=== PATIENT | male | born 1970 | race Caucasian/White ===

== ENCOUNTER → 2016-12-12 | Day surgery (SDC) | payer OTHER ==
[~2016-12-12] MED LIST: BUPIVACAINE/EPINEPHRINE 0.25% PF 30 ML VIAL ONE; KETOROLAC TROMETHAMINE 30 MG/ML (IVP) VIAL IV PUSH ONE; LACTATED RINGER'S 1000 ML INJ 1,000 ML ONE; MIDAZOLAM HCL 2 MG/2 ML VIAL ONE; ONDANSETRON HCL 4 MG/2 ML VIAL IV PUSH ONE; PRAV20TA2 PO; PROPOFOL 200 MG/20 ML AMP IV ONE; ceFAZolin INJ 1,000 MG VIAL ONE; oxyCODONE/ACETAMINOPHEN 5 MG/325 MG TAB ONE
--- NOTE | 2016-12-12 10:26 | TN ---
cc: NOEL CHAVEZ M.D. DATE OF SURGERY 12/12/2016 PREOPERATIVE DIAGNOSIS Left knee medial meniscus tear. POSTOPERATIVE DIAGNOSIS 1. Left knee complex medial meniscus tear and degenerative lateral meniscus tear. 2. Synovitis left knee involving the intercondylar notch and the patellofemoral joint space. 3. 10% rupture ACL PROCEDURE PERFORMED 1. Left knee arthroscopy with partial medial and lateral meniscectomies. 2. Limited synovectomy involving the intercondylar notch and the patellofemoral joint space. 3. Left knee arthroscopic debridement of his partial ACL rupture. SURGEON Noel Chavez MD ANESTHESIA General via laryngeal mask augmented by local infiltration BLOOD LOSS Minimal TOURNIQUET TIME 23 minutes at 300 mmHg COUNTS All counts were correct. IMPLANTS No implants were utilized. IMAGING There were no radiologic procedures performed. COMPLICATIONS There were no intraoperative complications. INDICATIONS FOR PROCEDURE Scooter is a 46-year-old gentleman who has been experiencing problems with left knee medial joint line tenderness since early 2016. As a result of his persistent symptoms and limited improvement with conservative care, he was being taken to the operating room for left knee arthroscopy. He had an MRI that revealed the presence of a medial meniscus tear. He was aware of the risks, benefits, potential complications, as well as limitations of the procedure and a full written informed consent was obtained. DESCRIPTION OF THE PROCEDURE After the patient was appropriately identified in the holding area, he correctly marked his left knee for surgery and I had initialed it as well. He was then given one gram of intravenous Ancef in the holding area and then taken to the operating suite where he was placed under general laryngeal mask anesthetic by Dr. Clark. At this time, a well-padded thigh-high tourniquet was a placed on the left leg and then his left leg was prepped with alcohol and Hibiclens and then draped in the normal standard fashion including the use of an impervious stockinette on the foot all the way up to the midcalf level. At this time, a brief time-out was held confirming the left leg was the appropriate surgical site. The team was in agreement and case was now begun. His leg was elevated and exsanguinated with an Kobe wrap. The tourniquet was raised to 300 mmHg. Standard anteromedial and anterolatral joint line portals were established under direct vision. Inflow was initiated and survey of the joint was as follows. A small effusion was evacuated which was primarily clear yellow with slight blood tinge towards the end. Once the knee was decompressed, the inflow was initiated. The scope revealed evidence of moderate hypertrophic synovitis of the patellofemoral joint space especially with the patellar fat pad being somewhat hypertrophic and thickened. This was debrided with an oscillating shaver. The patellofemoral joint showed minimal chondromalacia and the patella did track midline. No loose bodies or any significant chondromalacia was encountered. The medial gutter was now explored. No loose bodies or synovitis was encountered. The medial compartment was now entered. There was a complex tear seen in the posterior third of the medial meniscus with a relatively large unstable white/white tear with some maceration. I was able to debride the unstable tissue with a shaver, as well as hand instruments and then I found a secondary tear more along the anterior portion of the medial meniscus which was debrided with an oscillating shaver. Following partial meniscectomy, the medial meniscus itself was stable and there was an intact rim posteriorly. There was minor grade 2 chondromalacia on the posterior tibia where the meniscus was unstable. The intercondylar notch was now explored. There was an approximate 10% rupture of the ACL with the tissue still adherent on the tibial side. It had begun to scar and form somewhat of a very early cyclops and as a result, I went ahead and debrided it with the oscillating shaver. The rest of the anterior cruciate ligament was intact and tensioned appropriately with anterior drawer maneuvers. The posterior cruciate ligament was intact and tensioned appropriately with posterior drawer. The lateral compartment was now entered. There was a large band of synovial tissue that was adherent from the roof of the intercondylar notch that extended towards the lateral compartment and attached to the anterior horn of the lateral meniscus. I went ahead and debrided this hypertrophic tissue in order to visualize lateral compartment fully. The lateral compartment was now entered. There was minimal chondromalacia and there was clear evidence of significant cartilage loss on the femoral side more than anywhere else. There was a degenerative appearing tear on the central portion of lateral meniscus that composed numerous small radial tears a small horizontal cleavage component and the central rim was debrided until it was stable. Once this was done, the chondral surfaces did not require any chondroplasty. The lateral gutter was free of any loose bodies or debris. At this time, he was taken through a range of motion several times. The knee was filled with fluid and then suctioned decompressed and then I went ahead and inspected all compartments and found no further pathology. It was at this time that we went ahead and fully suctioned decompressed the knee one last time and removed all the instruments. The portals were closed with 3-0 nylon simple sutures and then the portals in the knee were then injected with 30 cc of quarter percent Marcaine with epinephrine for postop pain relief and for hemostasis. The wounds were then dressed with Xeroform, 4x4s and ABD and Kobe wrap was applied to the leg. He was awoken from anesthesia after the tourniquet had been let down. He had brisk return of capillary refill in the foot and reestablished distal pulses. He was awoken from anesthesia and taken to recovery in stable condition. Appropriate postoperative orders have been written. Noel Chavez MD Electronically Signed Noel Chavez MD SIS/RIVERL /9:56 AM /10:16 AM MTDD
== END | disposition home or self-care (01) ==
LOC: ESDC 07:56
PROVIDERS: ATTEND Orthopaedic Surgery Sports Medicine
DX: S83.232A Complex tear of medial meniscus, current injury, left knee, initial encounter (principal); S83.282A Other tear of lateral meniscus, current injury, left knee, initial encounter; M65.9 Synovitis and tenosynovitis, unspecified; S83.512A Sprain of anterior cruciate ligament of left knee, initial encounter
CPT/HCPCS: 01400; 29880; J0690; J1885; J2250; J2405; J3010; J7120